=== PATIENT | female | born 1995 | race Caucasian/White ===

== ENCOUNTER 2019-11-14 23:11 | Emergency (ER) | payer OTHER ==
[~2019-11-14] VITALS: Ht 157.5 cm; Wt 50.4 kg
[2019-11-14 23:18] VITALS: Ht 157.5 cm; Wt 50.4 kg
[2019-11-15 01:08] LABS: RED CELL DISTRIBUTION WIDTH 12.2 % (11.5-14.5)
[2019-11-15 01:22] LABS: CARBON DIOXIDE 26.3 mmol/L (21-32); CHLORIDE SERUM 103 mmol/L (98-107); CREATININE SERUM 0.7 mg/dL (0.6-1.0); GFR1 > 60 mL/min; GLUCOSE SERUM 112 mg/dL (74-106); POTASSIUM SERUM 3.4 mmol/L (3.5-5.1); SODIUM SERUM 141 mmol/L (136-145)
[2019-11-15 01:24] LABS: PLATELET COUNT 322 x10^3mcL (130-400)
[2019-11-15 01:27] LABS: ALBUMIN 4.3 g/dL (3.4-5.0); ALKALINE PHOSPHATASE 48 U/L (46-116); ALT/SGPT 14 U/L (14-59); AST/SGOT 17 U/L (15-37); BILIRUBIN TOTAL 0.8 mg/dL (0.20-1.00); LIPASE 54 IU/L (73-393)
[2019-11-15 03:15] LABS: AMPHETAMINE QUAL UR NONE DETECTED (See below)
[2019-11-15 05:24] VITALS: BP 113/67
== END 2019-11-15 05:24 | disposition home or self-care (01) ==
LOC: ED 23:11
PROVIDERS: Emergency Medicine
DX: K56.7 Ileus, unspecified (principal); J45.909 Unspecified asthma, uncomplicated
CPT/HCPCS: J1885; J2270; J2405